=== PATIENT | female | born 1955 | race Caucasian/White ===

== ENCOUNTER 2016-11-02 18:05 | Emergency (ER) | payer BC ==
[2016-11-02 20:20] LABS: BASO # 0.1 K/mm3 (0.0-0.2); BASO % 0.8 % (0.0-1.0); EOS # 0.1 K/mm3 (0.0-0.50); EOS % 1.8 % (0.0-3.0); LARGE UNSTAINED CELL # 0.1 K/mm3 (0.0-0.4); LARGE UNSTAINED CELL % 1.5 % (0.0-4.0); LYMPH # 1.5 K/mm3 (1.5-4.5); LYMPH % 20.4 % (24.0-44.0); MEAN CORPUSCULAR HEMOGLOBIN 27.5 pg (27.0-33.0); MEAN CORPUSCULAR HGB CONC 31.1 g/dl (32.0-36.5); MEAN CORPUSCULAR VOLUME 88.6 fl (80.0-96.0); MONO # 0.5 K/mm3 (0.0-0.8); MONO % 6.4 % (0.0-5.0); NEUTROPHILS % 69.1 % (36.0-66.0); PLATELET COUNT, AUTOMATED 579 k/mm3 (150-450); RED CELL DISTRIBUTION WIDTH 15.5 % (11.5-14.5); WHITE BLOOD COUNT 7.2 K/mm3 (4.0-10.0)
[2016-11-02 20:30] LABS: CALCIUM LEVEL 9.6 MG/DL (8.8-10.2); CREATININE FOR GFR 1.12 MG/DL (0.55-1.02); GLOMERULAR FILTRATION RATE 52.3 (>45); POTASSIUM SERUM 4.7 MEQ/L (3.5-5.1)
--- NOTE | 2016-11-02 22:20 | EDDOCDS ---
Physician Documentation [facility] Name: Kelly Gilbert Age: 61 yrs Sex: Female : 1955 Arrival Date: 11/02/2016 Time: 18:05 Bed 14 Private MD: Cyril Baker H. Disposition: 11/02 22:07 Critical Care: Critical care not applicable. pc Disposition: 11/02/16 22:09 Discharged to Home/Self Care. Impression: Type 2 diabetes mellitus - A1C elevated to 8.4, Person with feared health complaint in whom no diagnosis is made - potassium level normal at 4.7. - Condition is Stable. - Discharge Instructions: Type 2 Diabetes Mellitus, Adult. - Medication Reconciliation, Local Pharmacy Hours form. - Follow up: Cyril Baker; When: Per his request, call tomorrow to be seen Tuesday morning; Reason: Continuance of care. - Problem is new. - Symptoms are unchanged. HPI: 19:35 This 61 yrs old Female presents to ER via Walkin/Carried/Asstd with pc complaints of Abnormal Lab Results. 19:35 The history is obtained from the patient, the patient's family/friend. She had routine pc labs done by Dr. Christiansen today, for follow up of a Staph. bacteremia/sepsis, and was called and told to come to the ED. Her potassium was over 6 and her glucose 500. She complains of weakness ut not anything new, and she denies any other specific complaints. Her potassium had been low and her potassium doubled 3 weeks ago. This is her first lab draw since that time. The patient has not experienced similar symptoms in the past. The patient has been recently seen by Dr. Christiansen. Historical: - Allergies: Rocephin (Rash)sugar gets low, gets loopy; - Home Meds: 1. Cymbalta 30 mg Oral cpDR 1 cap 2 times per day 2. gabapentin 300 mg Oral tab twice a day 3. morphine 30 mg Oral TbER 1 tab every 12 hours as needed 4. omeprazole 40 mg Oral cpDR 1 cap once daily 5. potassium chloride 10 mEq oral TbER 2 times per day 6. senekot 8.6 mg 2 tabs nightly 7. levothyroxine 50 mcg Oral cap 1 cap once daily 8. ibuprofen 200 mg oral tab twice a day 9. metformin 1,000 mg Oral tab 1 tab 2 times per day 10. ferrous sulfate 325 mg (65 mg iron) Oral tab twice a day 11. ascorbic acid (vitamin C) 500 mg oral TbER twice a day 12. dicloxacillin 500 mg Oral cap every 8 hours - PMHx: Diabetes - NIDDM: uncontrolled; Hypothyroidism; GERD; Hypercholesterolemia; - PSHx: ; - The history from nurses notes was reviewed: and I agree with what is documented. - Social history: Smoking status: Patient states was never smoker of tobacco. No barriers to communication noted, The patient speaks fluent Divehi. - : The pt / caregiver states he / she is not on anticoagulants. Home medication list is obtained from the patient, a discharge med list. - Hospitalizations: : No recent hospitalization is reported. - Exposure Risk Screening:: None identified. - Immunization history:: All immunizations up-to-date. - Family history: Not pertinent. - Social history:: the patient is a non-smoker, the patient does not drink alcohol. ROS: 19:35 All systems are negative except as listed. pc Exam: 19:35 General Appearance: no acute distress, alert. pc 19:35 EENT: ears, nose and throat normal, pharynx normal, mucous membranes moist pale conjunctiva. 19:35 Neck: The exam reveals no acute abnormalities. ROM is normal and painless. No nuchal rigidity is noted.. 19:35 Respiratory: no respiratory distress, normal breath sounds, chest non-tender. 19:35 CVS: regular pulse rate, regular rhythm, normal S1 and S2, no murmurs, strong peripheral pulses, normal capillary refill. 19:35 Abdomen: soft, non-tender, no organomegaly, normal bowel sounds. 19:35 Back: normal inspection. 19:35 Skin: skin color is normal, warm, dry. 19:35 Extremities: The extremities have a grossly normal appearance, are non-tender, without acute ROM abnormalities. 19:35 Neuro: oriented x 3, cranial nerves normal as tested, no motor deficits, no sensory deficits. 19:35 Psych: normal mood. Vital Signs: 18:08 BP 101 / 61; Pulse 88; Resp 16; Temp 98.2(O); Pulse Ox 97% ; Weight 63.5 kg / 139.99 cmb lbs; Height 5 ft. 7 in. (170.18 cm); Pain 6/10; 19:49 BP 129 / 71 (auto/); cf2 19:50 Pulse 110 MON; Pulse Ox 97% ; cf2 19:57 Pulse 114 MON; Pulse Ox 99% ; cf2 20:19 Pulse 102 MON; Pulse Ox 98% ; cf2 20:19 BP 118 / 69 (auto/); cf2 20:25 Pulse 96 MON; Pulse Ox 99% ; cf2 20:30 Pulse 98 MON; Pulse Ox 98% ; cf2 22:13 BP 130 / 73; Pulse 95; Resp 18; Temp 99.2(TE); Pulse Ox 99% on R/A; jose 18:08 Body Mass Index 21.93 (63.50 kg, 170.18 cm) cmb MDM: 19:16 IV Saline Lock ordered. pc 19:16 Retirement Assistant/Pulse Ox/q 30 min VS ordered. pc 19:17 CBC with Diff Ordered. EDMS 19:17 MED Profile Ordered. EDMS 19:17 A1C Ordered. EDMS 19:17 ECG WITH READING ER PHYS+CARDIAG ordered. EDMS 19:35 Differential Diagnosis: hyperkalemia and hyperglycemia on out-patient labs without pc symptoms. Plan: repeat labs, EKG, CT. Test interpretation: EKG. 20:33 CBC with Diff Reviewed. pc 21:02 Financial registration complete. ks16 21:06 MED Profile Reviewed. pc 21:24 A1C Reviewed. pc 22:07 Data reviewed: old medical records, vital signs, nurses notes, EKG(s), lab test pc results. Test interpretation: LAB - all labs as ordered have been reviewed, interpreted and considered in the overall management of the clinical presentation;. The patient has been re-examined and re-evaluated. The clinical presentation did not require any ED treatment or interventions. Physician consultation: Dr. Cyril Baker was contacted at 22:07, regarding patient's condition, and he requests she call to be seen Tuesday morning. Disposition: The historical points, examination findings, and any diagnostic results supporting the provided diagnosis, were discussed with the patient or legal guardian. The need for outpatient follow up with the provider listed on their discharge instructions was discussed. They were encouraged to return to [facility], or the nearest ED, if symptoms worsen/persist, or for any other questions/concerns. EC:35 Rate is 98 beats/min. Rhythm is regular, Normal Sinus Rhythm. QRS [place] is Normal. LA pc interval is normal. QRS interval is normal. QT interval is normal. No Q waves. T waves are Normal. No ST changes noted. Clinical impression: Normal Sinus Rhythm. Signatures: Dispatcher [employer] EDMS Dylan Molina MD MD pc Sleeman, Kacey, RN RN kcs Gabby Padillaly, Reg Reg [email or web address] Mable Duke RN RN cf2 The chart was reviewed and I authenticate all verbal orders and agree with the evaluation and treatment provided.Corrections: (The following items were deleted from the chart) 21:45 18:37 Home Meds: Lipitor 20 mg Oral tab 1 tab once daily; kcs cf2 21:45 18:37 Home Meds: torsemide 10 mg oral tab 1 tab once daily; kcs cf2 21:45 18:37 Home Meds: Invokana 300 mg oral tab 1 tab once daily; kcs cf2 MTDD
--- NOTE | 2016-11-02 22:20 | EDDOCDS ---
Nurse's Notes [facility] Name: Kelly Gilbert Age: 61 yrs Sex: Female : 1955 Arrival Date: 11/02/2016 Time: 18:05 Bed 14 Private MD: Cyril Baker H. Diagnosis: Type 2 diabetes mellitus-A1C elevated to 8.4;Person with feared health complaint in whom no diagnosis is made-potassium level normal at 4.7 Presentation: 11/02 18:28 Presenting complaint: Patient states: she had blood drawn this am and received a call kcs to come in for another blood test because her potassium was 6.2 or 6.5 and her Blood sugar was 500. Adult Sepsis Screening: The patient does not have new or worsening altered mentation. Patient's respiratory rate is less than 22. Systolic blood pressure is greater than 100. Patient has a qSOFA score of 0- Negative Sepsis Screen. Suicide/Homicide risk assessment- the patient denies having any suicidal and/or homicidal ideations and does not present with any other emotional, behavioral or mental health complaints. Status: Patient is not a service cleaner or dependent. Transition of care: patient was not received from another setting of care. 18:28 Acuity: [place] Level 3 kcs 18:28 Method Of Arrival: Walkin/Carried/Asstd kcs Triage Assessment: 18:37 General: Appears comfortable, well developed, well nourished, well groomed, Behavior is kcs cooperative, pleasant. Pain: Location: abdomen, hips and left leg Pain currently is 6 out of 10 on a pain scale. HIV screening NA for this visit Offered previously. Neurological: Level of Consciousness is awake, alert. Respiratory: Airway is patent Respiratory effort is even, unlabored, Respiratory pattern is regular, symmetrical. Derm: Skin is intact, Skin is dry, Skin is jaundiced. Historical: - Allergies: Rocephin (Rash)sugar gets low, gets loopy; - Home Meds: 1. Cymbalta 30 mg Oral cpDR 1 cap 2 times per day 2. gabapentin 300 mg Oral tab twice a day 3. morphine 30 mg Oral TbER 1 tab every 12 hours as needed 4. omeprazole 40 mg Oral cpDR 1 cap once daily 5. potassium chloride 10 mEq oral TbER 2 times per day 6. senekot 8.6 mg 2 tabs nightly 7. levothyroxine 50 mcg Oral cap 1 cap once daily 8. ibuprofen 200 mg oral tab twice a day 9. metformin 1,000 mg Oral tab 1 tab 2 times per day 10. ferrous sulfate 325 mg (65 mg iron) Oral tab twice a day 11. ascorbic acid (vitamin C) 500 mg oral TbER twice a day 12. dicloxacillin 500 mg Oral cap every 8 hours - PMHx: Diabetes - NIDDM: uncontrolled; Hypothyroidism; GERD; Hypercholesterolemia; - PSHx: ; - The history from nurses notes was reviewed: and I agree with what is documented. - Social history: Smoking status: Patient states was never smoker of tobacco. No barriers to communication noted, The patient speaks fluent Vietnamese. - : The pt / caregiver states he / she is not on anticoagulants. Home medication list is obtained from the patient, a discharge med list. - Hospitalizations: : No recent hospitalization is reported. - Exposure Risk Screening:: None identified. - Immunization history:: All immunizations up-to-date. - Family history: Not pertinent. - Social history:: the patient is a non-smoker, the patient does not drink alcohol. Screenin:23 Screening information is obtained from the patient. Fall risk: No risks identified. cf2 Assistance ADL's: requires no assistance with activities of daily living. Abuse/DV Screen: The patient / caregiver reports he/she is: not in a situation that causes fear, pain or injury. Nutritional screening: No deficits noted. Advance Directives: Further advance directive information is declined. home support is adequate. Assessment: 20:23 Adult Sepsis Screening: The patient does not have new or worsening altered mentation. cf2 Patient's respiratory rate is less than 22. Systolic blood pressure is greater than 100. Patient has a qSOFA score of 0- Negative Sepsis Screen. General: Appears in no apparent distress, comfortable, Behavior is appropriate for age, cooperative, Denies fever, feeling ill, fatigue, chills. Pain: Denies pain. Neurological: No deficits noted. EENT: No deficits noted. Cardiovascular: No deficits noted. Rhythm is sinus rhythm. Respiratory: No deficits noted. GI: No deficits noted. : No deficits noted. Derm: No deficits noted. Musculoskeletal: No deficits noted. Injury Description: No known injury. Vital Signs: 18:08 BP 101 / 61; Pulse 88; Resp 16; Temp 98.2(O); Pulse Ox 97% ; Weight 63.5 kg; Height 5 cmb ft. 7 in. (170.18 cm); Pain 6/10; 19:49 BP 129 / 71 (auto/); cf2 19:50 Pulse 110 MON; Pulse Ox 97% ; cf2 19:57 Pulse 114 MON; Pulse Ox 99% ; cf2 20:19 Pulse 102 MON; Pulse Ox 98% ; cf2 20:19 BP 118 / 69 (auto/); cf2 20:25 Pulse 96 MON; Pulse Ox 99% ; cf2 20:30 Pulse 98 MON; Pulse Ox 98% ; cf2 22:13 BP 130 / 73; Pulse 95; Resp 18; Temp 99.2(TE); Pulse Ox 99% on R/A; jose 18:08 Body Mass Index 21.93 (63.50 kg, 170.18 cm) cmb Vitals: 18:08 Log In Time: November 02, 2016 at 18:05. cmb ED Course: 18:07 Patient visited by Jennifer Isaac. cmb 18:07 Eliceo Ardon is Private Physician. cmb 18:07 Cyril Baker is Private Physician. cmb 18:07 Patient moved to Waiting cmb 18:09 Patient moved to Pre RCE cmb 18:29 Triage Initiated kcs 18:44 Patient moved to 14 bcj 19:01 Mable Duke,RN is Primary Nurse. cf2 19:02 Patient visited by Mable Duke,CARMEN. cf2 19:06 Dyaln Molina MD is Attending Physician. pc 19:15 Attending Physician role handed off by Dylan Molina MD cs11 19:15 Fredis Faustin DO is Attending Physician. cs11 19:15 Attending Physician role handed off by Fredis Faustin DO pc 19:15 Dylan Molina MD is Attending Physician. pc 19:16 Patient visited by Dylan Molina MD. pc 19:26 Patient visited by Virgie Waggoner PCA. jose 19:26 EKG done. (by ED staff). Reviewed by Dylan Molina MD. jose 19:47 Patient visited by Mable Duke,CARMEN. cf2 20:23 Patient visited by Mable Duke RN. cf2 20:23 The patient / caregiver is instructed regarding the plan of care and ED course. cf2 Accompanied by Family Member, Patient has correct armband on for positive identification. Placed in gown. Bed in low position. Call light in reach. Side rails up X 1. Side rails up X2. motorcycle maker on. Pulse ox on. NIBP on. Door closed. Noise minimized. Visitors limited. Lights dimmed. Moved to private room. Verbal reassurance given. Warm blanket given. Pillow given. Head of bed elevated. 20:23 Inserted saline lock: 20 gauge in right antecubital area and blood collected. The cf2 patient tolerated the procedure well. No procedures done that require assistance. 21:24 Patient visited by Dylan Molina MD. pc 21:44 Patient visited by Mable Duke RN. cf2 22:09 Cyril Baker is Referral Physician. pc 22:13 Patient visited by Virgie Waggoner PCA. jose 22:18 Patient visited by Mable Duke RN. cf2 22:18 Discontinued lock. cf2 Order Results: Lab Order: CBC with Diff; SPEC'M 11/02/16 19:50 Test: WHITE BLOOD COUNT; Value: 7.2; Range: 4.0-10.0; Units: K/mm3; Status: F Test: RED BLOOD COUNT; Value: 3.37; Range: 4.00-5.40; Abnormal: Below low normal; Units: M/mm3; Status: F Test: HEMOGLOBIN; Value: 9.3; Range: 12.0-16.0; Abnormal: Below low normal; Units: g/dl; Status: F Test: HEMATOCRIT; Value: 29.8; Range: 36.0-47.0; Abnormal: Below low normal; Units: %; Status: F Test: MEAN CORPUSCULAR VOLUME; Value: 88.6; Range: 80.0-96.0; Units: fl; Status: F Test: MEAN CORPUSCULAR HEMOGLOBIN; Value: 27.5; Range: 27.0-33.0; Units: pg; Status: F Test: MEAN CORPUSCULAR HGB CONC; Value: 31.1; Range: 32.0-36.5; Abnormal: Below low normal; Units: g/dl; Status: F Test: RED CELL DISTRIBUTION WIDTH; Value: 15.5; Range: 11.5-14.5; Abnormal: Above high normal; Units: %; Status: F Test: PLATELET COUNT, AUTOMATED; Value: 579; Range: 150-450; Abnormal: Above high normal; Units: k/mm3; Status: F Test: NEUTROPHILS %; Value: 69.1; Range: 36.0-66.0; Abnormal: Above high normal; Units: %; Status: F Test: LYMPH %; Value: 20.4; Range: 24.0-44.0; Abnormal: Below low normal; Units: %; Status: F Test: MONO %; Value: 6.4; Range: 0.0-5.0; Abnormal: Above high normal; Units: %; Status: F Test: EOS %; Value: 1.8; Range: 0.0-3.0; Units: %; Status: F Test: BASO %; Value: 0.8; Range: 0.0-1.0; Units: %; Status: F Test: LARGE UNSTAINED CELL %; Value: 1.5; Range: 0.0-4.0; Units: %; Status: F Test: NEUTROPHILS #; Value: 5.0; Range: 1.8-7.7; Units: K/mm3; Status: F Test: LYMPH #; Value: 1.5; Range: 1.5-4.5; Units: K/mm3; Status: F Test: MONO #; Value: 0.5; Range: 0.0-0.8; Units: K/mm3; Status: F Test: EOS #; Value: 0.1; Range: 0.0-0.50; Units: K/mm3; Status: F Test: BASO #; Value: 0.1; Range: 0.0-0.2; Units: K/mm3; Status: F Test: LARGE UNSTAINED CELL #; Value: 0.1; Range: 0.0-0.4; Units: K/mm3; Status: F Lab Order: MED Profile; SPEC'M 11/02/16 19:50 Test: GLUCOSE, FASTING; Value: 395; Range: 80-110; Abnormal: Above high normal; Units: MG/DL; Status: F Test: BLOOD UREA NITROGEN; Value: 26; Range: 7-18; Abnormal: Above high normal; Units: MG/DL; Status: F Test: CREATININE FOR GFR; Value: 1.12; Range: 0.55-1.02; Abnormal: Above high normal; Units: MG/DL; Status: F Test: GLOMERULAR FILTRATION RATE; Value: 52.3; Range: >45; Status: F Test: SODIUM LEVEL; Value: 133; Range: 136-145; Abnormal: Below low normal; Units: MEQ/L; Status: F Test: POTASSIUM SERUM; Value: 4.7; Range: 3.5-5.1; Abnormal: Delta; Units: MEQ/L; Status: F Test: CHLORIDE LEVEL; Value: 94; Range: 98-107; Abnormal: Below low normal; Units: MEQ/L; Status: F Test: CARBON DIOXIDE LEVEL; Value: 33; Range: 21-32; Abnormal: Above high normal; Units: MEQ/L; Status: F Test: ANION GAP; Value: 6; Range: 8-16; Abnormal: Below low normal; Units: MEQ/L; Status: F Test: CALCIUM LEVEL; Value: 9.6; Range: 8.8-10.2; Units: MG/DL; Status: F Test Note: ; Units are mL/min/1.73 m2 Chronic Kidney Disease Staging per NKF: Stage I & II GFR >=60 Normal to Mildly Decreased Stage III GFR 30-59 Moderately Decreased Stage IV GFR 15-29 Severely Decreased Stage V GFR <15 Very Little GFR Left ESRD GFR <15 on NET APPLICATION ARCHITECT Lab Order: A1C; SPEC'M 11/02/16 19:50 Test: HEMOGLOBIN A1c; Value: 8.4; Range: 4.5-6.2; Abnormal: Above high normal; Units: %; Status: F Test: ESTIMATED AVERAGE GLUCOSE; Value: 194; Range: 60-110; Abnormal: Above high normal; Units: MG/DL; Status: F Outcome: 22:09 Discharge ordered by Provider. pc 22:18 Discharge Assessment: Patient awake, alert and oriented x 3. No cognitive and/or cf2 functional deficits noted. Patient verbalized understanding of disposition instructions. Patient awake, Oriented to person, patient administered narcotics - no. The following High Risk Discharge criteria are identified: None. Condition: good Condition: stable Condition: improved. Discharge instructions given to patient, significant other, Instructed on discharge instructions, follow up and referral plans. No special radiology studies were completed. Property :Personal belongings accompany Pt. 22:19 Patient left the ED. cf2 Signatures: Dylan Molina MD MD pc Sleeman, Kacey, RN RN Peter Cottrell RN RN Virgie Carmona PCA PCA dre [place], [place] cmb Fredis Faustin, DO cs11 Mable DukeRN RN cf2 Corrections: (The following items were deleted from the chart) 21:45 18:37 Home Meds: Lipitor 20 mg Oral tab 1 tab once daily; [facility] cf2 :45 18:37 Home Meds: torsemide 10 mg oral tab 1 tab once daily; [facility] :45 18:37 Home Meds: Invokana 300 mg oral tab 1 tab once daily; [facility] MTDD
--- NOTE | 2016-11-03 19:49 | ECGEPIP ---
Stationary ECG Study [facility] - ED Test Date: 2016-11-02 Pat Name: ZARIA FREGOSO Department: Room: - Gender: F Munitions Worker: WrightB: 1955 Requested By: Dylan Rogers Order Number: [id number] Reading MD: Gabi Cornelius Measurements Intervals [place] Rate: 98 P: 74 CA: 135 QRS: 53 QRSD: 84 T: 49 QT: 325 QTc: 416 Interpretive Statements SINUS RHYTHM NSTTW ABNORMALITY Electronically Signed On 11-03-2016 19:49:03 EST by Gabi Cornelius
--- NOTE | 2016-11-04 23:21 | EDDOCDS ---
Nurse's Notes [facility] Name: Kelly Gilbert Age: 61 yrs Sex: Female : 1955 Arrival Date: 11/02/2016 Time: 18:05 Bed 14 Private MD: Cyril Baker H. Diagnosis: Type 2 diabetes mellitus-A1C elevated to 8.4;Person with feared health complaint in whom no diagnosis is made-potassium level normal at 4.7 Presentation: 11/02 18:28 Presenting complaint: Patient states: she had blood drawn this am and received a call kcs to come in for another blood test because her potassium was 6.2 or 6.5 and her Blood sugar was 500. Adult Sepsis Screening: The patient does not have new or worsening altered mentation. Patient's respiratory rate is less than 22. Systolic blood pressure is greater than 100. Patient has a qSOFA score of 0- Negative Sepsis Screen. Suicide/Homicide risk assessment- the patient denies having any suicidal and/or homicidal ideations and does not present with any other emotional, behavioral or mental health complaints. Status: Patient is not a service engine repairer or dependent. Transition of care: patient was not received from another setting of care. 18:28 Acuity: [place] Level 3 kcs 18:28 Method Of Arrival: Walkin/Carried/Asstd kcs Triage Assessment: 18:37 General: Appears comfortable, well developed, well nourished, well groomed, Behavior is kcs cooperative, pleasant. Pain: Location: abdomen, hips and left leg Pain currently is 6 out of 10 on a pain scale. HIV screening NA for this visit Offered previously. Neurological: Level of Consciousness is awake, alert. Respiratory: Airway is patent Respiratory effort is even, unlabored, Respiratory pattern is regular, symmetrical. Derm: Skin is intact, Skin is dry, Skin is jaundiced. Historical: - Allergies: Rocephin (Rash)sugar gets low, gets loopy; - Home Meds: 1. Cymbalta 30 mg Oral cpDR 1 cap 2 times per day 2. gabapentin 300 mg Oral tab twice a day 3. morphine 30 mg Oral TbER 1 tab every 12 hours as needed 4. omeprazole 40 mg Oral cpDR 1 cap once daily 5. potassium chloride 10 mEq oral TbER 2 times per day 6. senekot 8.6 mg 2 tabs nightly 7. levothyroxine 50 mcg Oral cap 1 cap once daily 8. ibuprofen 200 mg oral tab twice a day 9. metformin 1,000 mg Oral tab 1 tab 2 times per day 10. ferrous sulfate 325 mg (65 mg iron) Oral tab twice a day 11. ascorbic acid (vitamin C) 500 mg oral TbER twice a day 12. dicloxacillin 500 mg Oral cap every 8 hours - PMHx: Diabetes - NIDDM: uncontrolled; Hypothyroidism; GERD; Hypercholesterolemia; - PSHx: ; - The history from nurses notes was reviewed: and I agree with what is documented. - Social history: Smoking status: Patient states was never smoker of tobacco. No barriers to communication noted, The patient speaks fluent Slovak. - : The pt / caregiver states he / she is not on anticoagulants. Home medication list is obtained from the patient, a discharge med list. - Hospitalizations: : No recent hospitalization is reported. - Exposure Risk Screening:: None identified. - Immunization history:: All immunizations up-to-date. - Family history: Not pertinent. - Social history:: the patient is a non-smoker, the patient does not drink alcohol. Screenin:23 Screening information is obtained from the patient. Fall risk: No risks identified. cf2 Assistance ADL's: requires no assistance with activities of daily living. Abuse/DV Screen: The patient / caregiver reports he/she is: not in a situation that causes fear, pain or injury. Nutritional screening: No deficits noted. Advance Directives: Further advance directive information is declined. home support is adequate. Assessment: 20:23 Adult Sepsis Screening: The patient does not have new or worsening altered mentation. cf2 Patient's respiratory rate is less than 22. Systolic blood pressure is greater than 100. Patient has a qSOFA score of 0- Negative Sepsis Screen. General: Appears in no apparent distress, comfortable, Behavior is appropriate for age, cooperative, Denies fever, feeling ill, fatigue, chills. Pain: Denies pain. Neurological: No deficits noted. EENT: No deficits noted. Cardiovascular: No deficits noted. Rhythm is sinus rhythm. Respiratory: No deficits noted. GI: No deficits noted. : No deficits noted. Derm: No deficits noted. Musculoskeletal: No deficits noted. Injury Description: No known injury. Vital Signs: 18:08 BP 101 / 61; Pulse 88; Resp 16; Temp 98.2(O); Pulse Ox 97% ; Weight 63.5 kg; Height 5 cmb ft. 7 in. (170.18 cm); Pain 6/10; 19:49 BP 129 / 71 (auto/); cf2 19:50 Pulse 110 MON; Pulse Ox 97% ; cf2 19:57 Pulse 114 MON; Pulse Ox 99% ; cf2 20:19 Pulse 102 MON; Pulse Ox 98% ; cf2 20:19 BP 118 / 69 (auto/); cf2 20:25 Pulse 96 MON; Pulse Ox 99% ; cf2 20:30 Pulse 98 MON; Pulse Ox 98% ; cf2 22:13 BP 130 / 73; Pulse 95; Resp 18; Temp 99.2(TE); Pulse Ox 99% on R/A; jose 18:08 Body Mass Index 21.93 (63.50 kg, 170.18 cm) cmb Vitals: 18:08 Log In Time: November 02, 2016 at 18:05. cmb ED Course: 18:07 Patient visited by Jennifer Isaac. cmb 18:07 Eliceo Ardon is Private Physician. cmb 18:07 Cyril Baker is Private Physician. cmb 18:07 Patient moved to Waiting cmb 18:09 Patient moved to Pre RCE cmb 18:29 Triage Initiated kcs 18:44 Patient moved to 14 bcj 19:01 Mable Duke,RN is Primary Nurse. cf2 19:02 Patient visited by Mable Duke,CARMEN. cf2 19:06 Dylan Molina MD is Attending Physician. pc 19:15 Attending Physician role handed off by Dylan Molina MD cs11 19:15 Fredis Faustin DO is Attending Physician. cs11 19:15 Attending Physician role handed off by Fredis Faustin DO pc 19:15 Dylan Molina MD is Attending Physician. pc 19:16 Patient visited by Dylan Molina MD. pc 19:26 Patient visited by Virgie Waggoner PCA. jose 19:26 EKG done. (by ED staff). Reviewed by Dylan Molina MD. jose 19:47 Patient visited by Mable Duke,CARMEN. cf2 20:23 Patient visited by Mable Duke RN. cf2 20:23 The patient / caregiver is instructed regarding the plan of care and ED course. cf2 Accompanied by Family Member, Patient has correct armband on for positive identification. Placed in gown. Bed in low position. Call light in reach. Side rails up X 1. Side rails up X2. deck worker on. Pulse ox on. NIBP on. Door closed. Noise minimized. Visitors limited. Lights dimmed. Moved to private room. Verbal reassurance given. Warm blanket given. Pillow given. Head of bed elevated. 20:23 Inserted saline lock: 20 gauge in right antecubital area and blood collected. The cf2 patient tolerated the procedure well. No procedures done that require assistance. 21:24 Patient visited by Dylan Molina MD. pc 21:44 Patient visited by Mable Duke RN. cf2 22:09 Cyril Baekr is Referral Physician. pc 22:13 Patient visited by Virgie Waggoner PCA. jose 22:18 Patient visited by Mable Duke RN. cf2 22:18 Discontinued lock. cf2 11/03 00:34 [facility] Payment Agreement was scanned into [employer] and attached to record. ks16 12:50 ECG/EKG was scanned into [employer] and attached to record. gb 20:05 EKG-ADULT Returned. EDMS Order Results: Lab Order: CBC with Diff; SPEC'M 11/02/16 19:50 Test: WHITE BLOOD COUNT; Value: 7.2; Range: 4.0-10.0; Units: K/mm3; Status: F Test: RED BLOOD COUNT; Value: 3.37; Range: 4.00-5.40; Abnormal: Below low normal; Units: M/mm3; Status: F Test: HEMOGLOBIN; Value: 9.3; Range: 12.0-16.0; Abnormal: Below low normal; Units: g/dl; Status: F Test: HEMATOCRIT; Value: 29.8; Range: 36.0-47.0; Abnormal: Below low normal; Units: %; Status: F Test: MEAN CORPUSCULAR VOLUME; Value: 88.6; Range: 80.0-96.0; Units: fl; Status: F Test: MEAN CORPUSCULAR HEMOGLOBIN; Value: 27.5; Range: 27.0-33.0; Units: pg; Status: F Test: MEAN CORPUSCULAR HGB CONC; Value: 31.1; Range: 32.0-36.5; Abnormal: Below low normal; Units: g/dl; Status: F Test: RED CELL DISTRIBUTION WIDTH; Value: 15.5; Range: 11.5-14.5; Abnormal: Above high normal; Units: %; Status: F Test: PLATELET COUNT, AUTOMATED; Value: 579; Range: 150-450; Abnormal: Above high normal; Units: k/mm3; Status: F Test: NEUTROPHILS %; Value: 69.1; Range: 36.0-66.0; Abnormal: Above high normal; Units: %; Status: F Test: LYMPH %; Value: 20.4; Range: 24.0-44.0; Abnormal: Below low normal; Units: %; Status: F Test: MONO %; Value: 6.4; Range: 0.0-5.0; Abnormal: Above high normal; Units: %; Status: F Test: EOS %; Value: 1.8; Range: 0.0-3.0; Units: %; Status: F Test: BASO %; Value: 0.8; Range: 0.0-1.0; Units: %; Status: F Test: LARGE UNSTAINED CELL %; Value: 1.5; Range: 0.0-4.0; Units: %; Status: F Test: NEUTROPHILS #; Value: 5.0; Range: 1.8-7.7; Units: K/mm3; Status: F Test: LYMPH #; Value: 1.5; Range: 1.5-4.5; Units: K/mm3; Status: F Test: MONO #; Value: 0.5; Range: 0.0-0.8; Units: K/mm3; Status: F Test: EOS #; Value: 0.1; Range: 0.0-0.50; Units: K/mm3; Status: F Test: BASO #; Value: 0.1; Range: 0.0-0.2; Units: K/mm3; Status: F Test: LARGE UNSTAINED CELL #; Value: 0.1; Range: 0.0-0.4; Units: K/mm3; Status: F Lab Order: MED Profile; SPEC'M 11/02/16 19:50 Test: GLUCOSE, FASTING; Value: 395; Range: 80-110; Abnormal: Above high normal; Units: MG/DL; Status: F Test: BLOOD UREA NITROGEN; Value: 26; Range: 7-18; Abnormal: Above high normal; Units: MG/DL; Status: F Test: CREATININE FOR GFR; Value: 1.12; Range: 0.55-1.02; Abnormal: Above high normal; Units: MG/DL; Status: F Test: GLOMERULAR FILTRATION RATE; Value: 52.3; Range: >45; Status: F Test: SODIUM LEVEL; Value: 133; Range: 136-145; Abnormal: Below low normal; Units: MEQ/L; Status: F Test: POTASSIUM SERUM; Value: 4.7; Range: 3.5-5.1; Abnormal: Delta; Units: MEQ/L; Status: F Test: CHLORIDE LEVEL; Value: 94; Range: 98-107; Abnormal: Below low normal; Units: MEQ/L; Status: F Test: CARBON DIOXIDE LEVEL; Value: 33; Range: 21-32; Abnormal: Above high normal; Units: MEQ/L; Status: F Test: ANION GAP; Value: 6; Range: 8-16; Abnormal: Below low normal; Units: MEQ/L; Status: F Test: CALCIUM LEVEL; Value: 9.6; Range: 8.8-10.2; Units: MG/DL; Status: F Test Note: ; Units are mL/min/1.73 m2 Chronic Kidney Disease Staging per NKF: Stage I & II GFR >=60 Normal to Mildly Decreased Stage III GFR 30-59 Moderately Decreased Stage IV GFR 15-29 Severely Decreased Stage V GFR <15 Very Little GFR Left ESRD GFR <15 on SUPERVISOR BEEHIVE KILN Lab Order: A1C; SPEC'M 11/02/16 19:50 Test: HEMOGLOBIN A1c; Value: 8.4; Range: 4.5-6.2; Abnormal: Above high normal; Units: %; Status: F Test: ESTIMATED AVERAGE GLUCOSE; Value: 194; Range: 60-110; Abnormal: Above high normal; Units: MG/DL; Status: F Radiology Order: EKG-ADULT Test: EKG-ADULT REASON FOR EXAMINATION: hyperkalemia; Stationary ECG Study; [facility] - ED; ; Test Date: 2016-11-02; Pat Name: KELLY GILBERT Department:; Room: -; Gender: F It Audit Manager: noam; : 1955 Requested By: Dylan Rogers; Order Number: [id number] Reading MD: Gabi Cornelius; Measurements; Intervals [place]; Rate: 98 P: 74; ND: 135 QRS: 53; QRSD: 84 T: 49; QT: 325; QTc: 416; Interpretive Statements; SINUS RHYTHM; NSTTW ABNORMALITY; Electronically Signed On 11-03-2016 19:49:03 EST by Gabi Cornelius; Outcome: 11/02 22:09 Discharge ordered by Provider. pc 22:18 Discharge Assessment: Patient awake, alert and oriented x 3. No cognitive and/or cf2 functional deficits noted. Patient verbalized understanding of disposition instructions. Patient awake, Oriented to person, patient administered narcotics - no. The following High Risk Discharge criteria are identified: None. Condition: good Condition: stable Condition: improved. Discharge instructions given to patient, significant other, Instructed on discharge instructions, follow up and referral plans. No special radiology studies were completed. Property :Personal belongings accompany Pt. 22:19 Patient left the ED. cf2 Signatures: Dispatcher [employer] EDMS Dylan Molina MD MD pc Sleeman, Kacey RN RN Peter Cottrell RN RN bcj Barnhardt, Gloria, Reg Reg gb Virgie Waggoner, MARINE STEAM FITTER HELPER MARINE STEAM FITTER HELPER Jennifer Madrid cmb Fredis Faustin, DO cs11 Lisa Padilla, Reg Reg ks16 Mable Duke,RN RN cf2 Corrections: (The following items were deleted from the chart) 21:45 18:37 Home Meds: Lipitor 20 mg Oral tab 1 tab once daily; kcs cf2 21:45 18:37 Home Meds: torsemide 10 mg oral tab 1 tab once daily; kcs cf2 21:45 18:37 Home Meds: Invokana 300 mg oral tab 1 tab once daily; kcs cf2 Chart Complete MTDD
--- NOTE | 2016-11-04 23:21 | EDDOCDS ---
Physician Documentation [facility] Name: Kelly Gilbert Age: 61 yrs Sex: Female : 1955 Arrival Date: 11/02/2016 Time: 18:05 Bed 14 Private MD: Cyril Baker H. Disposition: 11/02 22:07 Critical Care: Critical care not applicable. pc Disposition: 11/02/16 22:09 Discharged to Home/Self Care. Impression: Type 2 diabetes mellitus - A1C elevated to 8.4, Person with feared health complaint in whom no diagnosis is made - potassium level normal at 4.7. - Condition is Stable. - Discharge Instructions: Type 2 Diabetes Mellitus, Adult. - Medication Reconciliation, Local Pharmacy Hours form. - Follow up: Cyril Baker; When: Per his request, call tomorrow to be seen Tuesday morning; Reason: Continuance of care. - Problem is new. - Symptoms are unchanged. HPI: 19:35 This 61 yrs old Female presents to ER via Walkin/Carried/Asstd with pc complaints of Abnormal Lab Results. 19:35 The history is obtained from the patient, the patient's family/friend. She had routine pc labs done by Dr. Christiansen today, for follow up of a Staph. bacteremia/sepsis, and was called and told to come to the ED. Her potassium was over 6 and her glucose 500. She complains of weakness ut not anything new, and she denies any other specific complaints. Her potassium had been low and her potassium doubled 3 weeks ago. This is her first lab draw since that time. The patient has not experienced similar symptoms in the past. The patient has been recently seen by Dr. Christiansen. Historical: - Allergies: Rocephin (Rash)sugar gets low, gets loopy; - Home Meds: 1. Cymbalta 30 mg Oral cpDR 1 cap 2 times per day 2. gabapentin 300 mg Oral tab twice a day 3. morphine 30 mg Oral TbER 1 tab every 12 hours as needed 4. omeprazole 40 mg Oral cpDR 1 cap once daily 5. potassium chloride 10 mEq oral TbER 2 times per day 6. senekot 8.6 mg 2 tabs nightly 7. levothyroxine 50 mcg Oral cap 1 cap once daily 8. ibuprofen 200 mg oral tab twice a day 9. metformin 1,000 mg Oral tab 1 tab 2 times per day 10. ferrous sulfate 325 mg (65 mg iron) Oral tab twice a day 11. ascorbic acid (vitamin C) 500 mg oral TbER twice a day 12. dicloxacillin 500 mg Oral cap every 8 hours - PMHx: Diabetes - NIDDM: uncontrolled; Hypothyroidism; GERD; Hypercholesterolemia; - PSHx: ; - The history from nurses notes was reviewed: and I agree with what is documented. - Social history: Smoking status: Patient states was never smoker of tobacco. No barriers to communication noted, The patient speaks fluent Macedonian. - : The pt / caregiver states he / she is not on anticoagulants. Home medication list is obtained from the patient, a discharge med list. - Hospitalizations: : No recent hospitalization is reported. - Exposure Risk Screening:: None identified. - Immunization history:: All immunizations up-to-date. - Family history: Not pertinent. - Social history:: the patient is a non-smoker, the patient does not drink alcohol. ROS: 19:35 All systems are negative except as listed. pc Exam: 19:35 General Appearance: no acute distress, alert. pc 19:35 EENT: ears, nose and throat normal, pharynx normal, mucous membranes moist pale conjunctiva. 19:35 Neck: The exam reveals no acute abnormalities. ROM is normal and painless. No nuchal rigidity is noted.. 19:35 Respiratory: no respiratory distress, normal breath sounds, chest non-tender. 19:35 CVS: regular pulse rate, regular rhythm, normal S1 and S2, no murmurs, strong peripheral pulses, normal capillary refill. 19:35 Abdomen: soft, non-tender, no organomegaly, normal bowel sounds. 19:35 Back: normal inspection. 19:35 Skin: skin color is normal, warm, dry. 19:35 Extremities: The extremities have a grossly normal appearance, are non-tender, without acute ROM abnormalities. 19:35 Neuro: oriented x 3, cranial nerves normal as tested, no motor deficits, no sensory deficits. 19:35 Psych: normal mood. Vital Signs: 18:08 BP 101 / 61; Pulse 88; Resp 16; Temp 98.2(O); Pulse Ox 97% ; Weight 63.5 kg / 139.99 cmb lbs; Height 5 ft. 7 in. (170.18 cm); Pain 6/10; 19:49 BP 129 / 71 (auto/); cf2 19:50 Pulse 110 MON; Pulse Ox 97% ; cf2 19:57 Pulse 114 MON; Pulse Ox 99% ; cf2 20:19 Pulse 102 MON; Pulse Ox 98% ; cf2 20:19 BP 118 / 69 (auto/); cf2 20:25 Pulse 96 MON; Pulse Ox 99% ; cf2 20:30 Pulse 98 MON; Pulse Ox 98% ; cf2 22:13 BP 130 / 73; Pulse 95; Resp 18; Temp 99.2(TE); Pulse Ox 99% on R/A; jose 18:08 Body Mass Index 21.93 (63.50 kg, 170.18 cm) cmb MDM: 19:16 IV Saline Lock ordered. pc 19:16 Community Service Patrol Officer/Pulse Ox/q 30 min VS ordered. pc 19:17 CBC with Diff Ordered. EDMS 19:17 MED Profile Ordered. EDMS 19:17 A1C Ordered. EDMS 19:17 ECG WITH READING ER PHYS+CARDIAG ordered. EDMS 19:35 Differential Diagnosis: hyperkalemia and hyperglycemia on out-patient labs without pc symptoms. Plan: repeat labs, EKG, CT. Test interpretation: EKG. 20:33 CBC with Diff Reviewed. pc 21:02 Financial registration complete. ks16 21:06 MED Profile Reviewed. pc 21:24 A1C Reviewed. pc 22:07 Data reviewed: old medical records, vital signs, nurses notes, EKG(s), lab test pc results. Test interpretation: LAB - all labs as ordered have been reviewed, interpreted and considered in the overall management of the clinical presentation;. The patient has been re-examined and re-evaluated. The clinical presentation did not require any ED treatment or interventions. Physician consultation: Dr. Cyril Baker was contacted at 22:07, regarding patient's condition, and he requests she call to be seen Tuesday morning. Disposition: The historical points, examination findings, and any diagnostic results supporting the provided diagnosis, were discussed with the patient or legal guardian. The need for outpatient follow up with the provider listed on their discharge instructions was discussed. They were encouraged to return to [facility], or the nearest ED, if symptoms worsen/persist, or for any other questions/concerns. 11/03 00:34 [facility] Payment Agreement was scanned into [employer] and attached to record. ks16 12:50 ECG/EKG was scanned into [employer] and attached to record. EC/03 19:35 Rate is 98 beats/min. Rhythm is regular, Normal Sinus Rhythm. QRS [place] is Normal. [place] pc interval is normal. QRS interval is normal. QT interval is normal. No Q waves. T waves are Normal. No ST changes noted. Clinical impression: Normal Sinus Rhythm. Signatures: Dispatcher [employer] EDMS Dylan Molina MD MD pc Sleeman, Kacey, RN RN [facility] Priti Cardenas, Reg Reg gb RandyLisa villalobos, Reg Reg ks16 Mable Duke RN RN cf2 The chart was reviewed and I authenticate all verbal orders and agree with the evaluation and treatment provided.Corrections: (The following items were deleted from the chart) 21:45 18:37 Home Meds: Lipitor 20 mg Oral tab 1 tab once daily; kcs cf2 21:45 18:37 Home Meds: torsemide 10 mg oral tab 1 tab once daily; [facility] cf2 21:45 18:37 Home Meds: Invokana 300 mg oral tab 1 tab once daily; kcs cf2 Attachments: 11/03 00:34 [facility] Payment Agreement ks 12:50 ECG/EKG Chart Complete MTDD
--- NOTE | 2016-11-04 23:21 | EDDOCDS ---
Physician Documentation [facility] Name: Kelly Gilbert Age: 61 yrs Sex: Female : 1955 Arrival Date: 11/02/2016 Time: 18:05 Bed 14 Private MD: Cyril Baker H. Disposition: 11/02 22:07 Critical Care: Critical care not applicable. pc Disposition: 11/02/16 22:09 Discharged to Home/Self Care. Impression: Type 2 diabetes mellitus - A1C elevated to 8.4, Person with feared health complaint in whom no diagnosis is made - potassium level normal at 4.7. - Condition is Stable. - Discharge Instructions: Type 2 Diabetes Mellitus, Adult. - Medication Reconciliation, Local Pharmacy Hours form. - Follow up: Cyril Baker; When: Per his request, call tomorrow to be seen Tuesday morning; Reason: Continuance of care. - Problem is new. - Symptoms are unchanged. HPI: 19:35 This 61 yrs old Female presents to ER via Walkin/Carried/Asstd with pc complaints of Abnormal Lab Results. 19:35 The history is obtained from the patient, the patient's family/friend. She had routine pc labs done by Dr. Christiansen today, for follow up of a Staph. bacteremia/sepsis, and was called and told to come to the ED. Her potassium was over 6 and her glucose 500. She complains of weakness ut not anything new, and she denies any other specific complaints. Her potassium had been low and her potassium doubled 3 weeks ago. This is her first lab draw since that time. The patient has not experienced similar symptoms in the past. The patient has been recently seen by Dr. Christiansen. Historical: - Allergies: Rocephin (Rash)sugar gets low, gets loopy; - Home Meds: 1. Cymbalta 30 mg Oral cpDR 1 cap 2 times per day 2. gabapentin 300 mg Oral tab twice a day 3. morphine 30 mg Oral TbER 1 tab every 12 hours as needed 4. omeprazole 40 mg Oral cpDR 1 cap once daily 5. potassium chloride 10 mEq oral TbER 2 times per day 6. senekot 8.6 mg 2 tabs nightly 7. levothyroxine 50 mcg Oral cap 1 cap once daily 8. ibuprofen 200 mg oral tab twice a day 9. metformin 1,000 mg Oral tab 1 tab 2 times per day 10. ferrous sulfate 325 mg (65 mg iron) Oral tab twice a day 11. ascorbic acid (vitamin C) 500 mg oral TbER twice a day 12. dicloxacillin 500 mg Oral cap every 8 hours - PMHx: Diabetes - NIDDM: uncontrolled; Hypothyroidism; GERD; Hypercholesterolemia; - PSHx: ; - The history from nurses notes was reviewed: and I agree with what is documented. - Social history: Smoking status: Patient states was never smoker of tobacco. No barriers to communication noted, The patient speaks fluent Thai. - : The pt / caregiver states he / she is not on anticoagulants. Home medication list is obtained from the patient, a discharge med list. - Hospitalizations: : No recent hospitalization is reported. - Exposure Risk Screening:: None identified. - Immunization history:: All immunizations up-to-date. - Family history: Not pertinent. - Social history:: the patient is a non-smoker, the patient does not drink alcohol. ROS: 19:35 All systems are negative except as listed. pc Exam: 19:35 General Appearance: no acute distress, alert. pc 19:35 EENT: ears, nose and throat normal, pharynx normal, mucous membranes moist pale conjunctiva. 19:35 Neck: The exam reveals no acute abnormalities. ROM is normal and painless. No nuchal rigidity is noted.. 19:35 Respiratory: no respiratory distress, normal breath sounds, chest non-tender. 19:35 CVS: regular pulse rate, regular rhythm, normal S1 and S2, no murmurs, strong peripheral pulses, normal capillary refill. 19:35 Abdomen: soft, non-tender, no organomegaly, normal bowel sounds. 19:35 Back: normal inspection. 19:35 Skin: skin color is normal, warm, dry. 19:35 Extremities: The extremities have a grossly normal appearance, are non-tender, without acute ROM abnormalities. 19:35 Neuro: oriented x 3, cranial nerves normal as tested, no motor deficits, no sensory deficits. 19:35 Psych: normal mood. Vital Signs: 18:08 BP 101 / 61; Pulse 88; Resp 16; Temp 98.2(O); Pulse Ox 97% ; Weight 63.5 kg / 139.99 cmb lbs; Height 5 ft. 7 in. (170.18 cm); Pain 6/10; 19:49 BP 129 / 71 (auto/); cf2 19:50 Pulse 110 MON; Pulse Ox 97% ; cf2 19:57 Pulse 114 MON; Pulse Ox 99% ; cf2 20:19 Pulse 102 MON; Pulse Ox 98% ; cf2 20:19 BP 118 / 69 (auto/); cf2 20:25 Pulse 96 MON; Pulse Ox 99% ; cf2 20:30 Pulse 98 MON; Pulse Ox 98% ; cf2 22:13 BP 130 / 73; Pulse 95; Resp 18; Temp 99.2(TE); Pulse Ox 99% on R/A; jose 18:08 Body Mass Index 21.93 (63.50 kg, 170.18 cm) cmb MDM: 19:16 IV Saline Lock ordered. pc 19:16 Film Painter/Pulse Ox/q 30 min VS ordered. pc 19:17 CBC with Diff Ordered. EDMS 19:17 MED Profile Ordered. EDMS 19:17 A1C Ordered. EDMS 19:17 ECG WITH READING ER PHYS+CARDIAG ordered. EDMS 19:35 Differential Diagnosis: hyperkalemia and hyperglycemia on out-patient labs without pc symptoms. Plan: repeat labs, EKG, CT. Test interpretation: EKG. 20:33 CBC with Diff Reviewed. pc 21:02 Financial registration complete. ks16 21:06 MED Profile Reviewed. pc 21:24 A1C Reviewed. pc 22:07 Data reviewed: old medical records, vital signs, nurses notes, EKG(s), lab test pc results. Test interpretation: LAB - all labs as ordered have been reviewed, interpreted and considered in the overall management of the clinical presentation;. The patient has been re-examined and re-evaluated. The clinical presentation did not require any ED treatment or interventions. Physician consultation: Dr. Cyril Baker was contacted at 22:07, regarding patient's condition, and he requests she call to be seen Tuesday morning. Disposition: The historical points, examination findings, and any diagnostic results supporting the provided diagnosis, were discussed with the patient or legal guardian. The need for outpatient follow up with the provider listed on their discharge instructions was discussed. They were encouraged to return to [facility], or the nearest ED, if symptoms worsen/persist, or for any other questions/concerns. 11/03 00:34 [facility] Payment Agreement was scanned into [employer] and attached to record. ks16 12:50 ECG/EKG was scanned into [employer] and attached to record. EC/03 19:35 Rate is 98 beats/min. Rhythm is regular, Normal Sinus Rhythm. QRS [place] is Normal. [place] pc interval is normal. QRS interval is normal. QT interval is normal. No Q waves. T waves are Normal. No ST changes noted. Clinical impression: Normal Sinus Rhythm. Signatures: Dispatcher [employer] EDMS Dylan Molina MD MD pc Sleeman, Kacey, RN RN [facility] Priti Cardenas, Reg Reg gb RandyLisa villalobos, Reg Reg ks16 Mable Duke RN RN cf2 The chart was reviewed and I authenticate all verbal orders and agree with the evaluation and treatment provided.Corrections: (The following items were deleted from the chart) 21:45 18:37 Home Meds: Lipitor 20 mg Oral tab 1 tab once daily; kcs cf2 21:45 18:37 Home Meds: torsemide 10 mg oral tab 1 tab once daily; [facility] cf2 21:45 18:37 Home Meds: Invokana 300 mg oral tab 1 tab once daily; kcs cf2 Attachments: 11/03 00:34 [facility] Payment Agreement ks 12:50 ECG/EKG Chart Complete MTDD
== END 2016-11-02 22:19 | disposition home or self-care (01) ==
LOC: M ED 18:05
DX: Z71.1 Person with feared health complaint in whom no diagnosis is made (principal); E11.65 Type 2 diabetes mellitus with hyperglycemia; E03.9 Hypothyroidism, unspecified; K21.9 Gastro-esophageal reflux disease without esophagitis; E78.00 Pure hypercholesterolemia, unspecified; Z79.84 Long term (current) use of oral hypoglycemic drugs; Z79.1 Long term (current) use of non-steroidal anti-inflammatories (NSAID); Z79.899 Other long term (current) drug therapy; Z88.1 Allergy status to other antibiotic agents

== ENCOUNTER → 2016-11-02 | Outpatient (REF) | payer BC ==
[~2016-11-02] MED LIST: ASPI81CH PO; ATOR40TA PO; CYMB1CAP5 PO; FERR325T PO; GABA300C3 PO; INSUDET SC; INVO300T PO; METF1000 PO; MORP15TA2 PO; MORP30TASA PO; NAFC1INJ IV; OMEP40CA2 PO; POTA10CA32 PO; SENO8.6T10 PO; SYNT50TA PO; TORS10TA22 PO; VITA500C24 PO
[2016-11-02 16:45] LABS: BASO # 0.1 K/mm3 (0.0-0.2); BASO % 1.5 % (0.0-1.0); EOS # 0.2 K/mm3 (0.0-0.50); EOS % 1.9 % (0.0-3.0); LARGE UNSTAINED CELL # 0.1 K/mm3 (0.0-0.4); LARGE UNSTAINED CELL % 0.8 % (0.0-4.0); LYMPH # 1.5 K/mm3 (1.5-4.5); LYMPH % 15.9 % (24.0-44.0); MEAN CORPUSCULAR HEMOGLOBIN 26.8 pg (27.0-33.0); MEAN CORPUSCULAR HGB CONC 28.9 g/dl (32.0-36.5); MEAN CORPUSCULAR VOLUME 92.7 fl (80.0-96.0); MONO # 0.6 K/mm3 (0.0-0.8); MONO % 6.6 % (0.0-5.0); NEUTROPHILS # 6.5 K/mm3 (1.8-7.7); NEUTROPHILS % 73.2 % (36.0-66.0); PLATELET COUNT, AUTOMATED 602 k/mm3 (150-450); RED CELL DISTRIBUTION WIDTH 16.5 % (11.5-14.5); WHITE BLOOD COUNT 8.8 K/mm3 (4.0-10.0)
[2016-11-02 16:57] LABS: ALBUMIN 2.6 GM/DL (3.2-5.2); ALBUMIN/GLOBULIN RATIO 0.52 (1.00-1.93); BILIRUBIN,TOTAL 0.6 MG/DL (0.2-1.0); CALCIUM LEVEL 9.3 MG/DL (8.8-10.2); CREATININE FOR GFR 1.05 MG/DL (0.55-1.02); GLOMERULAR FILTRATION RATE 56.3 (>45); TOTAL PROTEIN 7.6 GM/DL (6.4-8.2)
[2016-11-02 17:15] LABS: ERYTHROCYTE SEDIMENTATION RATE 106 mm/hr (0-30)
[2016-11-02 17:23] LABS: POTASSIUM SERUM 6.2 MEQ/L (3.5-5.1)
== END ==
LOC: M SFHCPLAZ 12:13
PROVIDERS: ATTEND Internal Medicine Infectious Disease
DX: A49.01 Methicillin susceptible Staphylococcus aureus infection, unspecified site (principal); E87.6 Hypokalemia; E11.9 Type 2 diabetes mellitus without complications

== ENCOUNTER → 2016-11-05 | Outpatient (CLI) | payer BC ==
[2016-11-05 14:57] LABS: BASO % 0.6 % (0.0-1.0); EOS # 0.1 K/mm3 (0.0-0.50); LARGE UNSTAINED CELL # 0.1 K/mm3 (0.0-0.4); LARGE UNSTAINED CELL % 0.9 % (0.0-4.0); LYMPH # 0.9 K/mm3 (1.5-4.5); LYMPH % 12.4 % (24.0-44.0); MEAN CORPUSCULAR HGB CONC 29.6 g/dl (32.0-36.5); MEAN CORPUSCULAR VOLUME 91.5 fl (80.0-96.0); MONO # 0.4 K/mm3 (0.0-0.8); MONO % 4.8 % (0.0-5.0); NEUTROPHILS # 6.1 K/mm3 (1.8-7.7); NEUTROPHILS % 80.3 % (36.0-66.0); PLATELET COUNT, AUTOMATED 550 k/mm3 (150-450); RED CELL DISTRIBUTION WIDTH 15.2 % (11.5-14.5); WHITE BLOOD COUNT 7.6 K/mm3 (4.0-10.0)
[2016-11-05 15:22] LABS: CALCIUM LEVEL 9.1 MG/DL (8.8-10.2); CREATININE FOR GFR 1.06 MG/DL (0.55-1.02); GLOMERULAR FILTRATION RATE 55.7 (>45); POTASSIUM SERUM 4.5 MEQ/L (3.5-5.1)
== END ==
LOC: M WUC 14:02
PROVIDERS: ATTEND Internal Medicine
DX: R78.81 Bacteremia (principal)

== ENCOUNTER → 2016-11-19 | Outpatient (REF) | payer BC ==
[~2016-11-19] MED LIST changes: -TORS10TA22 PO; +TORS10TA3 PO
[2016-11-19 17:19] LABS: BASO % 0.3 % (0.0-1.0); EOS # 0.1 K/mm3 (0.0-0.50); LARGE UNSTAINED CELL # 0.1 K/mm3 (0.0-0.4); LYMPH # 1.2 K/mm3 (1.5-4.5); LYMPH % 17.7 % (24.0-44.0); MEAN CORPUSCULAR HEMOGLOBIN 27.7 pg (27.0-33.0); MEAN CORPUSCULAR HGB CONC 30.5 g/dl (32.0-36.5); MEAN CORPUSCULAR VOLUME 90.6 fl (80.0-96.0); MONO # 0.4 K/mm3 (0.0-0.8); MONO % 5.3 % (0.0-5.0); NEUTROPHILS # 5.2 K/mm3 (1.8-7.7); NEUTROPHILS % 73.7 % (36.0-66.0); PLATELET COUNT, AUTOMATED 438 k/mm3 (150-450)
[2016-11-19 21:53] LABS: ERYTHROCYTE SEDIMENTATION RATE 126 mm/hr (0-30)
== END ==
LOC: M SFHCSACK 15:48
PROVIDERS: ATTEND Internal Medicine Infectious Disease
DX: A49.01 Methicillin susceptible Staphylococcus aureus infection, unspecified site (principal)

== ENCOUNTER → 2016-11-24 | Outpatient (REF) | payer BC ==
[2016-11-24 15:50] LABS: BASO % 0.3 % (0.0-1.0); EOS # 0.1 K/mm3 (0.0-0.50); EOS % 1.5 % (0.0-3.0); LARGE UNSTAINED CELL # 0.1 K/mm3 (0.0-0.4); LARGE UNSTAINED CELL % 0.8 % (0.0-4.0); LYMPH # 1.5 K/mm3 (1.5-4.5); LYMPH % 24.9 % (24.0-44.0); MEAN CORPUSCULAR HEMOGLOBIN 27.3 pg (27.0-33.0); MEAN CORPUSCULAR HGB CONC 30.8 g/dl (32.0-36.5); MEAN CORPUSCULAR VOLUME 88.8 fl (80.0-96.0); MONO # 0.4 K/mm3 (0.0-0.8); MONO % 6.4 % (0.0-5.0); NEUTROPHILS # 4.1 K/mm3 (1.8-7.7); PLATELET COUNT, AUTOMATED 439 k/mm3 (150-450); RED CELL DISTRIBUTION WIDTH 15.1 % (11.5-14.5); WHITE BLOOD COUNT 6.2 K/mm3 (4.0-10.0)
[2016-11-24 16:03] LABS: ALBUMIN/GLOBULIN RATIO 0.79 (1.00-1.93); ALKALINE PHOSPHATASE 77 U/L (45-117); ALT/SGPT 9 U/L (12-78); ANION GAP 8 MEQ/L (8-16); AST/SGOT 5 U/L (15-37); BILIRUBIN,TOTAL 0.3 MG/DL (0.2-1.0); BLOOD UREA NITROGEN 23 MG/DL (7-18); CALCIUM LEVEL 8.9 MG/DL (8.8-10.2); CARBON DIOXIDE LEVEL 30 MEQ/L (21-32); CHLORIDE LEVEL 104 MEQ/L (98-107); CREATININE FOR GFR 0.81 MG/DL (0.55-1.02); GLOMERULAR FILTRATION RATE > 60.0 (>45); GLUCOSE, FASTING 126 MG/DL (80-110); PERCENT SATURATION 10.9 % (13.2-37.4); POTASSIUM SERUM 4.6 MEQ/L (3.5-5.1); SODIUM LEVEL 142 MEQ/L (136-145); TOTAL IRON BINDING CAPACITY 248 UG/DL (250-450); TOTAL PROTEIN 6.8 GM/DL (6.4-8.2)
[2016-11-24 16:22] LABS: ERYTHROCYTE SEDIMENTATION RATE 126 mm/hr (0-30)
[2016-11-27 00:07] LABS: Lyme Disease IgG/IgM Antibodie <0.91 ISR (0.00-0.90); Lyme Disease IgM Ab Quantitati <0.80 index (0.00-0.79)
== END ==
LOC: M SFHCPLAZ 11:55
PROVIDERS: ATTEND Internal Medicine Infectious Disease
DX: M25.552 Pain in left hip (principal); A49.01 Methicillin susceptible Staphylococcus aureus infection, unspecified site; D50.8 Other iron deficiency anemias

== ENCOUNTER → 2016-12-17 | Outpatient (CLI) | payer BC ==
[~2016-12-17] VITALS: Ht 170.2 cm; Wt 65.3 kg
[~2016-12-17] MED LIST changes: +DICL500C PO; +HYDR-3713 PO; +IBUP200C PO; +LIDOCAINE 2% INJ 100 MG/5 ML SDV (FOR ANES.) As Ordered ONE; +NS 1,000 ML IV SCH; +PROBCAP4 PO; +PROPOFOL 200 MG/20 ML VIAL As Ordered ONE
--- NOTE | 2016-12-17 13:02 | ROOR ---
Patient Name: Kelly Gilbert Procedure Date: 12/17/2016 12:48 PM Date of : 1955 Age: 61 Room: [facility] Gender: Female Note Status: Finalized Procedure: Upper GI endoscopy Indications: Iron deficiency anemia Providers: Adrien NEWSOME MD Referring MD: ROSY HORAN MD, Tan MENARD MD. Requesting Provider: Medicines: Monitored Anesthesia Care Complications: No immediate complications. Procedure: Pre-Anesthesia Assessment: - The heart rate, respiratory rate, oxygen saturations, blood pressure, adequacy of pulmonary ventilation, and response to care were monitored throughout the procedure. The Endoscope was introduced through the mouth, and advanced to the third part of duodenum. The upper GI endoscopy was accomplished without difficulty. The patient tolerated the procedure well. Findings: Prominent, but not necessarily abnormal papilla. This was biopsied with a cold forceps for histology. The esophagus was normal. The stomach was normal. The examined duodenum was normal. Impression: -. - Normal esophagus. - Normal stomach. - Normal examined duodenum. (Prominent papilla-biopsied) Recommendation: - Observe patient's clinical course. - Telephone endoscopist for pathology results in 2 weeks. Adrien Newsome MD Adrien NEWSOME MD 12/17/2016 1:02:24 PM This report has been signed electronically. Number of Addenda: 0 Note Initiated On: 12/17/2016 12:48 PM Estimated Blood Loss: Estimated blood loss: none.
--- NOTE | 2016-12-17 13:21 | ROOR ---
Patient Name: Kelly Gilbert Procedure Date: 12/17/2016 12:49 PM Date of : 1955 Age: 61 Room: [facility] Gender: Female Note Status: Finalized Procedure: Colonoscopy Indications: Iron deficiency anemia Providers: Adrien NEWSOME MD Referring MD: ROSY HORAN MD, Tan MENARD MD. Requesting Provider: Medicines: Monitored Anesthesia Care Complications: No immediate complications. Procedure: Pre-Anesthesia Assessment: - The heart rate, respiratory rate, oxygen saturations, blood pressure, adequacy of pulmonary ventilation, and response to care were monitored throughout the procedure. The Colonoscope was introduced through the anus and advanced to the terminal ileum, with identification of the appendiceal orifice and IC valve. The colonoscopy was performed without difficulty. The patient tolerated the procedure well. The quality of the bowel preparation was good. Findings: The perianal and digital rectal examinations were normal. A 15 mm polyp was found in the ascending colon. The polyp was carpet-like. The polyp was removed with a piecemeal technique using a cold snare. Resection and retrieval were complete. Small Internal Hemorrhoids. The exam was otherwise without abnormality on direct and retroflexion views. The terminal ileum appeared normal. Impression: - One 15 mm polyp in the ascending colon, removed piecemeal using a cold snare. Resected and retrieved. - Small Internal Hemorrhoids. - The colon examination was otherwise normal on direct and retroflexion views. - The examined portion of the ileum was normal. Recommendation: - Repeat colonoscopy in 3 years for surveillance. Adrien Newsome MD Adrien NEWSOME MD 12/17/2016 1:20:53 PM This report has been signed electronically. Number of Addenda: 0 Note Initiated On: 12/17/2016 12:49 PM Estimated Blood Loss: Estimated blood loss: none.
[2016-12-17 13:50] VITALS: BP 115/69
== END | disposition home or self-care (01) ==
LOC: M OPP 12:02
PROVIDERS: ATTEND Internal Medicine Gastroenterology
DX: Z12.2 Encounter for screening for malignant neoplasm of respiratory organs (principal); K64.8 Other hemorrhoids; D50.9 Iron deficiency anemia, unspecified; E03.9 Hypothyroidism, unspecified; R19.4 Change in bowel habit; E78.5 Hyperlipidemia, unspecified; M19.90 Unspecified osteoarthritis, unspecified site; E11.9 Type 2 diabetes mellitus without complications; Z88.1 Allergy status to other antibiotic agents; Z79.4 Long term (current) use of insulin; Z79.84 Long term (current) use of oral hypoglycemic drugs; Z79.899 Other long term (current) drug therapy

== ENCOUNTER → 2016-12-20 | Outpatient (CLI) | payer BC ==
[~2016-12-20] MED LIST changes: -LIDOCAINE 2% INJ 100 MG/5 ML SDV (FOR ANES.) As Ordered ONE; -NS 1,000 ML IV SCH; -PROPOFOL 200 MG/20 ML VIAL As Ordered ONE
--- NOTE | 2016-12-20 10:38 | REP ---
MRI PELVIS WITHOUT AND WITH CONTRAST: 12/20/2016. Comparison: 09/30/2016 CT without contrast, right hip 12/26/2015, left hip 11/22/2011. Technique: Axial T1 with fat suppressed T1, T2 and angled axial T1 fat suppressed images through the pelvis with coronal T1, fat suppressed T2 and a sagittal T2 with fat suppressed T2. After infusion of 12 ml of ProHance, axial and coronal smaller field of view central pelvic fat suppressed T1 sequences and standard whole pelvic coronal and axial fat suppressed T1 sequences were provided. Clinical history: Pelvic pain, evaluate for abscess, infection. Findings: Images show the uterus tilted to the right side of the pelvis and not enlarged. Fluid filled loops of small bowel in the pelvis. Stool and fluid in the cecum abutting and indenting the dome of the bladder on the right side. I see no pelvic free fluid or mass. No adnexal mass or fluid. No abnormal thickening of the endometrial cavity. Slight heterogeneity of the myometrium with small subserosal fibroid posteriorly in the body of the uterus on sagittal images. Hip joint spaces were symmetric. There was no hip joint effusion on either side. I do not see significant degenerative changes of the acetabular roof or femoral heads. No flattening of femoral heads to suggest AVN. However, there is enhancement, thickening and fluid within the bursa of the greater trochanter on the right greater than left which represents significant bursitis. Infection cannot be excluded. There is no abnormal marrow signal in the greater trochanter of either hip. Contrast images show enhancement in the left sacral ala at the SI joint margin along with the posterior and medial aspect of the ilium. There is enhancement of the margins of the joint with some fluid within it. This suggests SI joint effusion and possible edema/infection about both sides of the SI joint. No other abnormal bone signal or enhancement. No other pelvic findings. No inguinal adenopathy or hernia. Impression: 1. Extensive bursal thickening and fluid in the right greater trochanter representing trochanteric bursitis. Infection cannot be excluded. 2. Some abnormal signal in the left sacral ala, left ilium and SI joint with some fluid in that joint. This may reflect sacroiliitis with or without infection. Enhancing marrow on either side of the joint certainly raises suspicion. 3. The uterus deviated towards the left without enlargement or other significant finding. No pelvic free fluid or mass. Signed by Quincy Martin MD 12/20/2016 05:17 P
== END ==
LOC: M RAD 08:06
PROVIDERS: ATTEND Orthopaedic Surgery
DX: R10.2 Pelvic and perineal pain (principal)
CPT/HCPCS: 72197; A9576

== ENCOUNTER → 2017-01-03 | Outpatient (REF) | payer BC ==
[2017-01-03 13:41] LABS: BASO % 1.1 % (0.0-1.0); EOS # 0.1 K/mm3 (0.0-0.50); EOS % 2.5 % (0.0-3.0); LARGE UNSTAINED CELL # 0.1 K/mm3 (0.0-0.4); LARGE UNSTAINED CELL % 1.3 % (0.0-4.0); LYMPH # 1.7 K/mm3 (1.5-4.5); LYMPH % 33.6 % (24.0-44.0); MEAN CORPUSCULAR HEMOGLOBIN 28.1 pg (27.0-33.0); MEAN CORPUSCULAR HGB CONC 31.6 g/dl (32.0-36.5); MONO # 0.2 K/mm3 (0.0-0.8); MONO % 4.4 % (0.0-5.0); NEUTROPHILS # 2.7 K/mm3 (1.8-7.7); NEUTROPHILS % 57.1 % (36.0-66.0); PLATELET COUNT, AUTOMATED 286 k/mm3 (150-450); RED CELL DISTRIBUTION WIDTH 14.8 % (11.5-14.5); WHITE BLOOD COUNT 4.8 K/mm3 (4.0-10.0)
[2017-01-03 14:06] LABS: ERYTHROCYTE SEDIMENTATION RATE 57 mm/hr (0-30)
== END ==
LOC: M SFHCPLAZ 11:27
PROVIDERS: ATTEND Internal Medicine Infectious Disease
DX: A49.01 Methicillin susceptible Staphylococcus aureus infection, unspecified site (principal)

== ENCOUNTER → 2018-04-19 | Outpatient (CLI) | payer BC ==
[~2018-04-19] MED LIST changes: -ASPI81CH PO; -ATOR40TA PO; -CYMB1CAP5 PO; -DICL500C PO; -FERR325T PO; -GABA300C3 PO; -HYDR-3713 PO; -IBUP200C PO; -INSUDET SC; -INVO300T PO; +ISOVUE-370 76% 100ML VIAL (Q9967) As Ordered; -METF1000 PO; -MORP15TA2 PO; -MORP30TASA PO; -NAFC1INJ IV; -OMEP40CA2 PO; -POTA10CA32 PO; -PROBCAP4 PO; -SENO8.6T10 PO; -SYNT50TA PO; -TORS10TA3 PO; -VITA500C24 PO
== END ==
LOC: M RAD 13:32
DX: R10.2 Pelvic and perineal pain (principal)
CPT/HCPCS: Q9967